=== PATIENT | female | born 1995 | race American Indian/Alaskan Native ===

== ENCOUNTER 2017-07-05 14:54 | Emergency (ER) | payer SELFPAY ==
[2017-07-05 15:24] VITALS: BP 126/71
== END 2017-07-06 07:17 | disposition left against medical advice (07) ==
LOC: ED 14:54
DX: Z53.21 Procedure and treatment not carried out due to patient leaving prior to being seen by health care provider (principal)

== ENCOUNTER 2018-10-02 19:01 | Emergency (ER) | payer OTHER ==
--- NOTE | 2018-10-02 19:35 | Emergency Department Report ---
ED Eye Problem HPI - General Chief complaint: Eye Problems Stated complaint: POSS PINK EYE Time Seen by Provider: 10/02/18 19:30 Source: patient Mode of arrival: Ambulatory Limitations: No Limitations - History of Present Illness Initial comments: Pt is a 23 yo female who presents to the ED with c/o right eye redness and pain that began yesterday. She denies any drainage or crusting. Pt states she has seasonal allergies, has not taken anything Pt denies getting anything in the eye. Pt denies any contacts with similar sx. Pt denies any PMHx, no meds on daily basis. Pt is a non smoker, non drinker, no drug use. Pt states she had pink eye last year and it feels the same and she received abx drops. Pt denies any new vision problems. - Related Data Previous Rx's Medication Instructions Recorded Last Taken Type Cetirizine HCl [ZyrTEC] 10 mg PO QHS #30 tab.rapdis 10/02/18 Unknown Rx Neomy/Polymyx B/Hc Otic Susp 2 drops OD TID 7 Days #1 bottle 10/02/18 Unknown Rx [Cortisporin (Otic) Susp] Allergies Allergy/AdvReac Type Severity Reaction Status Date / Time No Known Allergies Allergy Verified 07/05/17 15:21 ED Review of Systems ROS: Stated complaint: POSS PINK EYE Other details as noted in HPI Comment: All other systems reviewed and negative ED Past Medical Hx - Past Medical History Previous Medical History?: Yes Hx Asthma: Yes - Surgical History Past Surgical History?: Yes Additional Surgical History: T&A - Social History Smoking Status: Never Smoker Substance Use Type: Marijuana - Medications Home Medications: Home Medications Medication Instructions Recorded Confirmed Last Taken Type Cetirizine HCl [ZyrTEC] 10 mg PO QHS #30 tab.rapdis 10/02/18 Unknown Rx Neomy/Polymyx B/Hc Otic Susp 2 drops OD TID 7 Days #1 bottle 10/02/18 Unknown Rx [Cortisporin (Otic) Susp] ED Physical Exam - General Limitations: No Limitations General appearance: alert, in no apparent distress - Head Head exam: Present: atraumatic, normocephalic - Eye Eye exam: Present: PERRL, EOMI, conjunctival injection (right), other (small amount of crusting in the corner of the right eye, otherwise normal) - ENT ENT exam: Present: normal orophraynx, mucous membranes moist - Neurological Exam Neurological exam: Present: alert, oriented X3 - Psychiatric Psychiatric exam: Present: normal affect, normal mood - Skin Skin exam: Present: warm, dry, intact ED Course Vital Signs 10/02/18 19:31 Temperature 98.3 F Pulse Rate 91 H Respiratory 18 Rate Blood Pressure 134/77 O2 Sat by Pulse 98 Oximetry ED Medical Decision Making - Medical Decision Making Pt is a 23 yo female who presents to the ED with c/o right eye redness and pain that began yesterday. She denies any drainage or crusting. Pt states she has seasonal allergies, has not taken anything Pt denies getting anything in the eye. Pt denies any contacts with similar sx. Pt denies any PMHx, no meds on daily basis. Pt is a non smoker, non drinker, no drug use. Pt states she had pink eye last year and it feels the same and she received abx drops. Pt denies any new vision problems. Pt has conjunctiva injection of the right eye with a small amount of crusting. Will give abx drops for conjunctivitis. Also will give zyrtec for seasonal allergies. Discussed to please follow up with PCP in the next 2-3 days. Discussed to return to the ED for any new or worsening symptoms. Critical care attestation.: If time is entered above; I have spent that time in minutes in the direct care of this critically ill patient, excluding procedure time. ED Disposition Clinical Impression: Conjunctivitis Qualifiers: Conjunctivitis type: acute Acute conjunctivitis type: unspecified Laterality: right Qualified Code(s): H10.31 - Unspecified acute conjunctivitis, right eye Disposition: DC-01 TO HOME OR SELFCARE Is pt being admited?: No Does the pt Need Aspirin: No Condition: Stable Instructions: Conjunctivitis (ED) Additional Instructions: Please follow up with a primary care doctor in the next 2-3 days. Use all medication as prescribed. Return to the emergency room for any new or worsening symptoms. Prescriptions: Cetirizine HCl [ZyrTEC] 10 mg PO QHS #30 tab.rapdis Neomy/Polymyx B/Hc Otic Susp [Cortisporin (Otic) Susp] 2 drops OD TID 7 Days #1 bottle Referrals: [facility] [Provider Group] - 2-3 Days Forms: Work/School Release Form(ED) Time of Disposition: 19:35 Print Language: BHUTANESE
[2018-10-03 19:36] VITALS: BP 134/77
== END 2018-10-02 19:50 | disposition home or self-care (01) ==
LOC: ED 19:01
DX: H10.31 Unspecified acute conjunctivitis, right eye (principal); J45.909 Unspecified asthma, uncomplicated; F12.10 Cannabis abuse, uncomplicated; Z90.89 Acquired absence of other organs
CPT/HCPCS: 99282